=== PATIENT | male | born 1995 | race Two or more races ===

== ENCOUNTER 2024-11-22 18:49 | Emergency (ER) | payer MEDICAID, SELFPAY ==
[2024-11-22 19:07] VITALS: BP 160/80; PULSE 62; RESP 20; TEMP 37.1; O2SAT 96; BMI 42.7
[2024-11-22] MEDS: KETOROLAC INJ 60 MG/2 ML VIAL IM (19:42)
[2024-11-22] MEDS: CYCLObenzaPRINE 5 MG TABLET PO (19:42)
--- NOTE | 2024-11-22 21:01 | EDNOTE_ITS ---
ED Back Injury Pain RME/HPI General Chief Complaint: Back Pain/Injury Stated Complaint: LOWER BACK PAIN X 1 DAY Time Seen by Provider: 11/22/24 19:13 Arrival date/time: 11/22/24 18:49 29M with no significant PMH presents to ED with 1 day of low back pain. Patient denies fall/trauma, paresthesia, bowel/bladder incontinence, and hematuria/dysuria. Patient was helping his family do some tile work and was bending down a lot. Limitations: no limitations Related Data Previous Rx's ?Medication ?Instructions ?Recorded cyclobenzaprine 5 mg tablet 5 mg PO TID PRN muscle spa sm #[id number] 11/22/24 tabs Allergies Allergy/AdvReac Type Severity Reaction Status Date / Time No Known Allergies Allergy Verified 11/22/24 18:54 Review of Systems Review of Systems Systems Reviewed: All systems reviewed, normal except as documented Constitutional Constitutional: Reports system reviewed and no additional complaints, except as documented, Denies fever(s) and Denies headache(s) ENT Ears, Nose, Mouth, and Throat: Denies disequilibrium and Denies headache(s) Cardiovascular Cardiovascular: Reports system reviewed and no additional complaints, except as documented, Denies chest pain and Denies dyspnea Respiratory Respiratory: Reports system reviewed and no additional complaints, except as documented, Denies cough and Denies dyspnea Gastrointestinal Gastrointestinal: Reports system reviewed and no additional complaints, except as documented, Denies abdominal pain, Denies nausea and Denies vomiting Musculoskeletal Musculoskeletal: Reports as per HPI and Reports back pain Neurologic Neurologic: Reports system reviewed and no additional complaints, except as documented, Denies confusion, Denies disequilibrium and Denies headache(s) Psychiatric Psychiatric: Denies confusion Past Medical History Past Medical History CARDIAC: Negative Congestive Heart Failure RESPIRATORY: Negative Chronic Obstructive Pulmonary Disease (COPD) GENITOURINARY: Negative Renal Disease ENDOCRINE: Negative Diabetes Mellitus Type 1 or Diabetes Mellitus Type 2 Social History SMOKING STATUS: Never smoker SUBSTANCE USE: does not use OCCUPATION: [employer] ED Exam General Limitations: Present no limitations General appearance: Present alert and in no apparent distress Head Head exam: Present atraumatic Eye Eye exam: Present normal appearance, PERRL and EOMI ENT ENT exam: Present normal exam, normal oropharynx and mucous membranes moist Neck Neck exam: Present normal inspection, full ROM and trachea midline Chest Chest inspection: Present normal inspection and symmetric chest wall rise Respiratory Respiratory exam: Present normal lung sounds bilaterally Cardiovascular Cardiovascular exam: Present regular rate, normal rhythm and normal heart sounds Abdominal Exam Abdominal exam: Present soft and normal bowel sounds Extremities Exam Extremities exam: Present normal inspection and full ROM Back Exam Back exam: Present normal inspection and full ROM Neurological Exam Neurological exam: Present alert, oriented X3 and CN II-XII intact Psychiatric Psychiatric exam: Present normal affect and normal mood Skin Skin exam: Present warm, dry, intact and normal color Course Quality Measures none Orders Category Date Time Status CYCLObenzaPRINE [Flexeril] Med 11/22/24 19:14 Discontinued 5 mg PO X1 ONE Ketorolac Inj [Toradol Inj] Med 11/22/24 19:14 Discontinued 60 mg IM X1 ONE Vital Signs Vital signs: Vital Signs Temperature 98.8 F 11/22/24 19:07 Pulse Rate 62 11/22/24 19:07 Respiratory Rate 20 11/22/24 19:07 Blood Pressure 160/80 H 11/22/24 19:07 Pulse Oximetry (%) 96 11/22/24 19:07 Oxygen Delivery Method Room Air 11/22/24 19:07 O2 at 96% on RA and WNLs Back Pain / Injury MDM Narrative MDM Narrative:: 29M with no significant PMH presents to ED with 1 day of low back pain. Patient denies fall/trauma, paresthesia, bowel/bladder incontinence, and hematuria/dysuria. Patient was helping his family do some tile work and was bending down a lot. Physical exam reveals no midline back tenderness. Patient is afebrile, calm, and alert. Likely strain. Meds and dormitory counselor given. Patient data External records reviewed:: [facility] previous records Clinical information provided by:: patient Social determinants that could affect healthcare access:: none Patient has the following chronic illnesses:: none How is presenting disease/condition affected by chronic disease/condition?: no chronic disease Evaluation data The following diagnostics were reviewed and interpreted by me:: other (specify) (none) Lab and/or radiology exams considered but not ordered:: not ordered Interpretation Summary: n/a Medications / Prescriptions Medications or Prescriptions considered but not ordered:: ordered Medication administrations:: Medication Administration History Discontinued Medications Cyclobenzaprine HCl (Cyclobenzaprine 5 Mg Tablet) 5 mg PO X1 ONE Stop: 11/22/24 19:15 Last Admin: 11/22/24 19:42 Dose: 5 mg Documented By: Ketorolac Tromethamine (Ketorolac Inj 60 Mg/2 Ml Vial) 60 mg IM X1 ONE Stop: 11/22/24 19:15 Last Admin: 11/22/24 19:42 Dose: 60 mg Documented By: above Consultations Consultation(s) initiated? (list below): No Diagnosis Differential diagnosis back pain/injury: lumbar radiculopathy, sciatica, strain of lumbar region, renal colic, pyelonephritis, thoracic back pain, AAA and discitis Most likely diagnosis given after review of the tests above:: strain of lumbar region Admission Indicated Admission indicated?: not indicated Admission Request Was there a request for admission?: No Disposition Plan Disposition Plan: Discharge Discharge Attestation Discharge Attestation: The patient and all family members were given an opportunity to ask questions and understood the discharge instructions. Discharge instructions specifically effects, indications for sooner follow up or return to the emergency department, and the expected course of current diagnosis. Patient condition: Stable Discharge Plan Plan Patient Disposition: HOME (Self Care) Disposition Comment: Stable Prescriptions/Referrals Prescriptions/Med Rec: New cyclobenzaprine 5 mg tablet 5 mg PO TID PRN (Reason: muscle spasm) Qty: 14 0RF Problem List Clinical Impression: Strain of lumbar region Patient/Caregiver Discharge Instructions Education Materials: ED Back Sprain/Strain Additional Instructions: Please follow-up with PCP within 24-48 hours and return immediately if symptoms worsen. If problem persists, recommend outpatient PT and/or MRI follow-up. In the meantime, rest, use ice/heat, and/or compression. Ibuprofen/Tylenol can be used simultaneously for greater fever/pain control. Print Language: Croatian Stand Alone Forms: Patient Portal Info Letter KG/CAROLYN Supervising Physician KG/CAROLYN Supervising Physician: Dr. Choi
== END 2024-11-22 20:37 | disposition home or self-care (01) ==
LOC: SERX 19:30
PROVIDERS: Emergency Provider Emergency Medicine
DX: S39.012A Strain of muscle, fascia and tendon of lower back, initial encounter (principal); X50.1XXA Overexertion from prolonged static or awkward postures, initial encounter
CPT/HCPCS: 99283; J1885; A9270